=== PATIENT | male | born 1990 | race Caucasian/White ===

== ENCOUNTER 2022-01-14 20:10 | Emergency (ER) | payer MEDICARE, MEDICAID ==
[~2022-01-14] VITALS: Ht 170.2 cm; Wt 70.0 kg
[2022-01-14 20:14] VITALS: BP 154/84
== END 2022-01-14 22:01 | disposition left against medical advice (07) ==
LOC: EMS 20:13
DX: Z76.0 Encounter for issue of repeat prescription (principal); Z53.21 Procedure and treatment not carried out due to patient leaving prior to being seen by health care provider